=== PATIENT | male | born 1965 | race Caucasian/White ===

== ENCOUNTER → 2017-05-27 | Outpatient (CLI) | payer OTHER | LOC: LAB 15:23 | DX: Z00.00 Encounter for general adult medical examination without abnormal findings (principal); Z12.5 Encounter for screening for malignant neoplasm of prostate; Z12.11 Encounter for screening for malignant neoplasm of colon ==

== ENCOUNTER → 2018-11-24 | Outpatient (CLI) | payer OTHER ==
[2018-11-24 11:11] LABS: EOS # 0.2 (0.04-0.40); HEMATOCRIT 48.9 % (42.0-52.0); HEMOGLOBIN 15.9 g/dL (13.5-18.0); LYMPH# 1.8 (1.50-4.00); MEAN CELL VOLUME 89 fl (78-100); MEAN CORPUSCULAR HEMOGLOBIN 29 pg (27-31); MEAN CORPUSCULAR HGB CONC 33 g/dL (33-37); MEAN PLATELET VOLUME 10.7 fl (7.4-10.4); MONO # 0.8 (0.20-0.80); NEU # 4.5 (1.40-6.50); PLATELET COUNT 242 K/mm3 (130-400); RED CELL DISTRIBUTION WIDTH 13.7 % (11.5-14.5); WHITE BLOOD COUNT 7.3 K/mm3 (4.8-10.8)
[2018-11-24 11:16] LABS: ALBUMIN 4.4 g/dL (3.5-5.0); CALCIUM 9.5 mg/dL (8.4-10.2); POTASSIUM 4.5 mmol/L (3.6-5.0); TOTAL PROTEIN 7.8 g/dL (6.3-8.2)
[2018-11-24 11:17] LABS: URINE APPEARANCE CLEAR; URINE COLOR YELLOW
[2018-11-24 11:18] LABS: URINE BILIRUBIN NEGATIVE (NEGATIVE); URINE BLOOD NEGATIVE (NEGATIVE); URINE GLUCOSE NEGATIVE (NEGATIVE); URINE KETONE NEGATIVE (NEGATIVE); URINE LEUKOCYTE ESTERASE NEGATIVE (NEGATIVE); URINE MUCUS PRESENT (NOT PRESENT); URINE NITRATE NEGATIVE (NEGATIVE); URINE PROTEIN(semi-quant) TRACE mg/dL (NEGATIVE); URINE UROBILINOGEN NORMAL (NORMAL); URINE WBC 0-1 /hpf (0-3)
[2018-11-24 12:24] LABS: ERYTHROCYTE SEDIMENTATION RATE 10 mm/hr (0-20)
[2018-11-25 02:46] LABS: TESTOSTERONE 279 ng/dL (221-716)
== END ==
LOC: LAB 10:13
PROVIDERS: Internal Medicine
DX: Z00.00 Encounter for general adult medical examination without abnormal findings (principal)

== ENCOUNTER → 2019-08-31 | Outpatient (CLI) | payer OTHER ==
[2019-08-31 11:54] LABS: EOS # 0.2 (0.04-0.40); EOS % 2.7 % (0.0-4.0); HEMATOCRIT 46.5 % (42.0-52.0); HEMOGLOBIN 15.3 g/dL (13.5-18.0); MEAN CELL VOLUME 88 fl (78-100); MEAN CORPUSCULAR HEMOGLOBIN 29 pg (27-31); MEAN CORPUSCULAR HGB CONC 33 g/dL (33-37); MEAN PLATELET VOLUME 9.9 fl (7.4-10.4); MONO # 0.8 (0.20-0.80); NEU # 4.3 (1.40-6.50); PLATELET COUNT 235 K/mm3 (130-400); RED BLOOD COUNT 5.31 M/mm3 (4.20-5.60); RED CELL DISTRIBUTION WIDTH 13.7 % (11.5-14.5); WHITE BLOOD COUNT 7.3 K/mm3 (4.8-10.8)
[2019-08-31 12:01] LABS: ALBUMIN 4.2 g/dL (3.5-5.0); POTASSIUM 4.1 mmol/L (3.5-5.1)
[2019-08-31 12:02] LABS: CALCIUM 9.9 mg/dL (8.3-10.5)
[2019-08-31 12:03] LABS: TOTAL PROTEIN 7.9 g/dL (6.4-8.3)
[2019-08-31 12:05] LABS: TOTAL BILIRUBIN 2.3 mg/dL (0.2-1.2)
[2019-08-31 12:27] LABS: URINE APPEARANCE CLEAR; URINE COLOR YELLOW
[2019-08-31 12:28] LABS: URINE BILIRUBIN NEGATIVE (NEGATIVE); URINE BLOOD NEGATIVE (NEGATIVE); URINE GLUCOSE NEGATIVE (NEGATIVE); URINE KETONE NEGATIVE (NEGATIVE); URINE LEUKOCYTE ESTERASE NEGATIVE (NEGATIVE); URINE NITRATE NEGATIVE (NEGATIVE); URINE PROTEIN(semi-quant) NEGATIVE (NEGATIVE); URINE UROBILINOGEN NORMAL (NORMAL); URINE WBC 0-1 /hpf (0-3)
[2019-08-31 12:29] LABS: URINE MUCUS PRESENT (NOT PRESENT)
[2019-08-31 13:21] LABS: ERYTHROCYTE SEDIMENTATION RATE 4 mm/hr (0-20)
== END ==
LOC: LAB 11:36
PROVIDERS: Internal Medicine
DX: Z00.00 Encounter for general adult medical examination without abnormal findings (principal)

== ENCOUNTER → 2020-09-19 | Outpatient (CLI) | payer OTHER ==
[2020-09-19 09:37] LABS: URINE WBC 0 /hpf (0-3)
[2020-09-19 09:57] LABS: EOS # 0.2 (0.04-0.40); EOS % 2.6 % (0.0-4.0); HEMATOCRIT 45.4 % (42.0-52.0); HEMOGLOBIN 14.8 g/dL (13.5-18.0); LYMPH# 1.9 (1.50-4.00); MEAN CELL VOLUME 88 fl (78-100); MEAN CORPUSCULAR HEMOGLOBIN 29 pg (27-31); MEAN CORPUSCULAR HGB CONC 33 g/dL (33-37); MEAN PLATELET VOLUME 10.2 fl (7.4-10.4); MONO # 0.8 (0.20-0.80); NEU # 4.7 (1.40-6.50); PLATELET COUNT 252 K/mm3 (130-400); RED BLOOD COUNT 5.15 M/mm3 (4.20-5.60); RED CELL DISTRIBUTION WIDTH 13.4 % (11.5-14.5); WHITE BLOOD COUNT 7.7 K/mm3 (4.8-10.8)
[2020-09-19 10:11] LABS: ALBUMIN 4.2 g/dL (3.5-5.0); POTASSIUM 4.2 mmol/L (3.5-5.1)
[2020-09-19 10:12] LABS: CALCIUM 9.2 mg/dL (8.3-10.5)
[2020-09-19 10:13] LABS: TOTAL PROTEIN 7.7 g/dL (6.4-8.3)
[2020-09-19 10:15] LABS: TOTAL BILIRUBIN 1.8 mg/dL (0.2-1.2)
[2020-09-19 10:20] LABS: MAGNESIUM 1.79 mg/dL (1.60-2.60)
[2020-09-19 12:01] LABS: ERYTHROCYTE SEDIMENTATION RATE 8 mm/hr (0-20)
[2020-09-19 12:02] LABS: URINE APPEARANCE CLEAR; URINE BILIRUBIN NEGATIVE (NEGATIVE); URINE BLOOD NEGATIVE (NEGATIVE); URINE COLOR YELLOW; URINE KETONE NEGATIVE (NEGATIVE); URINE LEUKOCYTE ESTERASE NEGATIVE (NEGATIVE); URINE NITRATE NEGATIVE (NEGATIVE); URINE PROTEIN(semi-quant) TRACE mg/dL (NEGATIVE); URINE UROBILINOGEN NORMAL (NORMAL)
== END ==
LOC: LAB 09:28
PROVIDERS: Internal Medicine
DX: Z00.00 Encounter for general adult medical examination without abnormal findings (principal)

== ENCOUNTER 2020-12-02 16:27 | Emergency (ER) | payer OTHER ==
[~2020-12-02] VITALS: Ht 177.8 cm; Wt 100.0 kg
[2020-12-02 17:11] LABS: HEMOGLOBIN 15.1 g/dL (13.5-18.0); MEAN CELL VOLUME 86 fl (78-100); MEAN CORPUSCULAR HEMOGLOBIN 28 pg (27-31); MEAN CORPUSCULAR HGB CONC 33 g/dL (33-37); MEAN PLATELET VOLUME 10.6 fl (7.4-10.4); PLATELET COUNT 175 K/mm3 (130-400); RED BLOOD COUNT 5.36 M/mm3 (4.20-5.60); RED CELL DISTRIBUTION WIDTH 13.8 % (11.5-14.5)
[2020-12-02] MEDS ORDERED: NORVASC 10MG10 MG PO (17:12)
[2020-12-02] MEDS ORDERED: COZAAR 50MG50 MG/TAB PO (17:13)
[2020-12-02] MEDS ORDERED: ISOSORBIDE MONO60 M2 PO (17:13)
[2020-12-02] MEDS ORDERED: CLOPIDOGREL PO (17:14)
[2020-12-02] MEDS ORDERED: LIPITOR 80MG80 MG PO (17:14)
[2020-12-02] MEDS ORDERED: LOPRESSOR 550 MG/TAB PO (17:14)
[2020-12-02] MEDS ORDERED: GLUCOPHAGE500 MG/TAB PO (17:15)
[2020-12-02 17:16] LABS: BAND 2 % (0-10); LYMPHOCYTE 18 % (20-51); MONOCYTE 13 % (3-10); NEUTROPHILS 65 % (42-75)
[2020-12-02] MEDS ORDERED: TRULICITY1.5 MG/0.5 SC (17:16)
[2020-12-02] MEDS ORDERED: ST. JOSEPH ASPI81 MG PO (17:16)
[2020-12-02 17:20] LABS: ALBUMIN 3.6 g/dL (3.5-5.0); POTASSIUM 3.8 mmol/L (3.5-5.1)
[2020-12-02 17:22] LABS: CALCIUM 8.8 mg/dL (8.3-10.5)
[2020-12-02 17:23] LABS: TOTAL PROTEIN 7.3 g/dL (6.4-8.3)
[2020-12-02 17:25] LABS: TOTAL BILIRUBIN 1.5 mg/dL (0.2-1.2)
[2020-12-02 17:26] LABS: D-DIMER 0.74 mg/L FEU (0.15-0.50)
[2020-12-02 17:36] LABS: TROPONIN-I 0.03 ng/mL (<0.030)
[2020-12-02 18:59] VITALS: BP 129/74
== END 2020-12-02 19:25 | disposition short-term general hospital (02) ==
LOC: ED 16:27
PROVIDERS: Nurse Practitioner
DX: U07.1 COVID-19 (principal); J12.82 Pneumonia due to coronavirus disease 2019; I25.10 Atherosclerotic heart disease of native coronary artery without angina pectoris; E11.9 Type 2 diabetes mellitus without complications; I10 Essential (primary) hypertension; Z79.02 Long term (current) use of antithrombotics/antiplatelets; Z79.82 Long term (current) use of aspirin; Z79.84 Long term (current) use of oral hypoglycemic drugs
CPT/HCPCS: J0456; J0696; J1100; J7030; J7050; Q9967

== ENCOUNTER → 2020-12-02 | Outpatient (CLI) | payer OTHER ==
[~2020-12-02] MED LIST: CLOPIDOGREL PO; COZAAR 50MG50 MG/TAB PO; GLUCOPHAGE500 MG/TAB PO; ISOSORBIDE MONO60 M2 PO; LIPITOR 80MG80 MG PO; LOPRESSOR 550 MG/TAB PO; NORVASC 10MG10 MG PO; ST. JOSEPH ASPI81 MG PO; TRULICITY1.5 MG/0.5 SC
== END ==
LOC: LAB 12:56
DX: R05 Cough (principal); Z53.8 Procedure and treatment not carried out for other reasons

== ENCOUNTER → 2021-03-20 | Outpatient (CLI) | payer OTHER ==
[2021-03-20 09:25] LABS: BASO # 0.02 (0.02-0.10); EOS # 0.28 (0.04-0.40); EOS % 3.4 % (0.0-4.0); HEMATOCRIT 45.7 % (42.0-52.0); LYMPH# 2.76 (1.50-4.00); MEAN CELL VOLUME 88 fl (78-100); MEAN CORPUSCULAR HEMOGLOBIN 29 pg (27-31); MEAN CORPUSCULAR HGB CONC 33 g/dL (33-37); MEAN PLATELET VOLUME 10.2 fl (7.4-10.4); MONO # 0.73 (0.20-0.80); NEU # 4.45 (1.40-6.50); PLATELET COUNT 263 K/mm3 (130-400); RED BLOOD COUNT 5.17 M/mm3 (4.20-5.60); RED CELL DISTRIBUTION WIDTH 13.7 % (11.5-14.5); WHITE BLOOD COUNT 8.3 K/mm3 (4.8-10.8)
[2021-03-20 09:41] LABS: ALBUMIN 4.2 g/dL (3.5-5.0); POTASSIUM 4.3 mmol/L (3.5-5.1)
[2021-03-20 09:42] LABS: CALCIUM 9.7 mg/dL (8.3-10.5)
[2021-03-20 09:44] LABS: TOTAL PROTEIN 7.2 g/dL (6.4-8.3)
[2021-03-20 09:46] LABS: TOTAL BILIRUBIN 2.1 mg/dL (0.2-1.2)
== END ==
LOC: LAB 08:35
PROVIDERS: Internal Medicine
DX: E11.9 Type 2 diabetes mellitus without complications (principal); I25.10 Atherosclerotic heart disease of native coronary artery without angina pectoris

== ENCOUNTER → 2021-07-09 | Outpatient (CLI) | payer OTHER ==
[2021-07-09 15:13] LABS: BASO # 0.02 (0.02-0.10); EOS # 0.17 (0.04-0.40); EOS % 1.8 % (0.0-4.0); LYMPH# 1.74 (1.50-4.00); MEAN CELL VOLUME 87 fl (78-100); MEAN CORPUSCULAR HEMOGLOBIN 28 pg (27-31); MEAN CORPUSCULAR HGB CONC 32 g/dL (33-37); MEAN PLATELET VOLUME 9.4 fl (7.4-10.4); MONO # 0.98 (0.20-0.80); NEU # 6.73 (1.40-6.50); PLATELET COUNT 427 K/mm3 (130-400); RED BLOOD COUNT 4.71 M/mm3 (4.20-5.60); RED CELL DISTRIBUTION WIDTH 12.7 % (11.5-14.5); WHITE BLOOD COUNT 9.7 K/mm3 (4.8-10.8)
[2021-07-09 15:14] LABS: ALBUMIN 3.7 g/dL (3.5-5.0); POTASSIUM 4.1 mmol/L (3.5-5.1)
[2021-07-09 15:16] LABS: CALCIUM 10.5 mg/dL (8.3-10.5)
[2021-07-09 15:17] LABS: TOTAL PROTEIN 7.8 g/dL (6.4-8.3)
[2021-07-09 15:19] LABS: TOTAL BILIRUBIN 1.4 mg/dL (0.2-1.2)
[2021-07-09 16:18] LABS: ERYTHROCYTE SEDIMENTATION RATE 103 mm/hr (0-20)
== END ==
LOC: LAB 14:54
PROVIDERS: Physician Assistant
DX: Z13.29 Encounter for screening for other suspected endocrine disorder (principal); R59.0 Localized enlarged lymph nodes; K90.9 Intestinal malabsorption, unspecified; E11.9 Type 2 diabetes mellitus without complications

== ENCOUNTER → 2021-07-24 | Outpatient (CLI) | payer OTHER ==
[2021-07-24 23:18] LABS: T3 FREE 2.2 pg/mL (1.7-3.7)
[2021-07-29 14:19] LABS: LIVER-KIDNEY MICROSOME AUTOAB <5.0 U (())
== END ==
LOC: LAB 08:38
PROVIDERS: Internal Medicine
DX: E06.1 Subacute thyroiditis (principal)

== ENCOUNTER → 2021-08-28 | Outpatient (CLI) | payer OTHER ==
[2021-08-28 09:57] LABS: BASO # 0.02 K/mm3 (0.02-0.10); EOS # 0.15 K/mm3 (0.04-0.40); HEMATOCRIT 47.1 % (42.0-52.0); LYMPH# 1.99 K/mm3 (1.50-4.00); MEAN CELL VOLUME 87 fl (78-100); MEAN CORPUSCULAR HEMOGLOBIN 28 pg (27-31); MEAN CORPUSCULAR HGB CONC 32 g/dL (33-37); MEAN PLATELET VOLUME 9.9 fl (7.4-10.4); MONO # 0.61 K/mm3 (0.20-0.80); NEU # 4.57 K/mm3 (1.40-6.50); PLATELET COUNT 284 K/mm3 (130-400); RED BLOOD COUNT 5.43 M/mm3 (4.20-5.60); RED CELL DISTRIBUTION WIDTH 15.6 % (11.5-14.5); WHITE BLOOD COUNT 7.4 K/mm3 (4.8-10.8)
[2021-08-28 10:49] LABS: ALBUMIN 4.3 g/dL (3.5-5.0); POTASSIUM 4.1 mmol/L (3.5-5.1)
[2021-08-28 10:50] LABS: CALCIUM 10.3 mg/dL (8.3-10.5)
[2021-08-28 10:52] LABS: TOTAL PROTEIN 7.7 g/dL (6.4-8.3)
[2021-08-28 10:53] LABS: TOTAL BILIRUBIN 1.7 mg/dL (0.2-1.2)
[2021-08-28 10:58] LABS: MAGNESIUM 1.96 mg/dL (1.60-2.60)
[2021-08-28 11:43] LABS: URINE COLOR YELLOW
[2021-08-28 11:44] LABS: URINE APPEARANCE CLEAR; URINE BILIRUBIN NEGATIVE (NEGATIVE); URINE BLOOD NEGATIVE (NEGATIVE); URINE GLUCOSE NEGATIVE (NEGATIVE); URINE KETONE NEGATIVE (NEGATIVE); URINE LEUKOCYTE ESTERASE NEGATIVE (NEGATIVE); URINE NITRATE NEGATIVE (NEGATIVE); URINE PROTEIN(semi-quant) TRACE mg/dL (NEGATIVE); URINE UROBILINOGEN NORMAL (NORMAL); URINE WBC 0-1 /hpf (0-3)
[2021-08-28 12:06] LABS: ERYTHROCYTE SEDIMENTATION RATE 8 mm/hr (0-20)
[2021-08-28 23:44] LABS: T3 FREE 2.4 pg/mL (1.7-3.7)
== END ==
LOC: LAB 09:19
PROVIDERS: Internal Medicine
DX: Z00.00 Encounter for general adult medical examination without abnormal findings (principal); Z12.5 Encounter for screening for malignant neoplasm of prostate; Z12.11 Encounter for screening for malignant neoplasm of colon

== ENCOUNTER → 2021-09-21 | Outpatient (CLI) | payer OTHER | LOC: LAB 07:50 | DX: E06.1 Subacute thyroiditis (principal) ==

== ENCOUNTER → 2021-11-09 | Outpatient (CLI) | payer OTHER | LOC: LAB 07:58 | DX: E06.1 Subacute thyroiditis (principal); E03.9 Hypothyroidism, unspecified ==

== ENCOUNTER → 2022-09-02 | Outpatient (CLI) | payer OTHER ==
[2022-09-02 09:37] LABS: URINE WBC 0 /hpf (0-3)
[2022-09-02 09:56] LABS: BASO # 0.01 K/mm3 (0.02-0.10); EOS # 0.54 K/mm3 (0.04-0.40); EOS % 7.8 % (0.0-4.0); HEMATOCRIT 48.9 % (42.0-52.0); HEMOGLOBIN 15.8 g/dL (13.5-18.0); LYMPH# 2.05 K/mm3 (1.50-4.00); MEAN CELL VOLUME 88 fl (78-100); MEAN CORPUSCULAR HEMOGLOBIN 29 pg (27-31); MEAN CORPUSCULAR HGB CONC 32 g/dL (33-37); MEAN PLATELET VOLUME 9.8 fl (7.4-10.4); MONO # 0.63 K/mm3 (0.20-0.80); NEU # 3.63 K/mm3 (1.40-6.50); PLATELET COUNT 248 K/mm3 (130-400); RED BLOOD COUNT 5.54 M/mm3 (4.20-5.60); WHITE BLOOD COUNT 6.9 K/mm3 (4.8-10.8)
[2022-09-02 09:58] LABS: ALBUMIN 4.5 g/dL (3.5-5.0); POTASSIUM 3.9 mmol/L (3.5-5.1)
[2022-09-02 10:00] LABS: TOTAL PROTEIN 8.2 g/dL (6.4-8.3)
[2022-09-02 10:02] LABS: TOTAL BILIRUBIN 1.7 mg/dL (0.2-1.2)
[2022-09-02 10:29] LABS: URINE APPEARANCE CLEAR; URINE BILIRUBIN NEGATIVE (NEGATIVE); URINE BLOOD NEGATIVE (NEGATIVE); URINE COLOR YELLOW; URINE GLUCOSE NEGATIVE (NEGATIVE); URINE KETONE NEGATIVE (NEGATIVE); URINE LEUKOCYTE ESTERASE NEGATIVE (NEGATIVE); URINE NITRATE NEGATIVE (NEGATIVE); URINE PROTEIN(semi-quant) NEGATIVE (NEGATIVE); URINE UROBILINOGEN NORMAL (NORMAL)
[2022-09-02 21:56] LABS: T3 FREE 2.4 pg/mL (1.7-3.7)
== END ==
LOC: LAB 09:22
PROVIDERS: Internal Medicine
DX: Z00.00 Encounter for general adult medical examination without abnormal findings (principal); Z12.5 Encounter for screening for malignant neoplasm of prostate; Z12.11 Encounter for screening for malignant neoplasm of colon; I25.10 Atherosclerotic heart disease of native coronary artery without angina pectoris; E06.1 Subacute thyroiditis; J20.9 Acute bronchitis, unspecified; K90.9 Intestinal malabsorption, unspecified; E29.1 Testicular hypofunction; E55.9 Vitamin D deficiency, unspecified; E11.9 Type 2 diabetes mellitus without complications

== ENCOUNTER → 2024-07-16 | Outpatient (CLI) | payer OTHER ==
[2024-07-16 10:52] LABS: BASO # 0.01 K/mm3 (0.02-0.10); EOS % 2.8 % (0.0-4.0); HEMATOCRIT 47.1 % (42.0-52.0); HEMOGLOBIN 15.4 g/dL (13.5-18.0); LYMPH# 1.58 K/mm3 (1.50-4.00); MEAN CELL VOLUME 89 fl (78-100); MEAN CORPUSCULAR HEMOGLOBIN 29 pg (27-31); MEAN CORPUSCULAR HGB CONC 33 g/dL (33-37); MEAN PLATELET VOLUME 9.6 fl (7.4-10.4); MONO # 0.66 K/mm3 (0.20-0.80); NEU # 4.71 K/mm3 (1.40-6.50); PLATELET COUNT 265 K/mm3 (130-400); RED BLOOD COUNT 5.29 M/mm3 (4.20-5.60); RED CELL DISTRIBUTION WIDTH 13.6 % (11.5-14.5); WHITE BLOOD COUNT 7.2 K/mm3 (4.8-10.8)
[2024-07-16 11:04] LABS: ALBUMIN 4.2 g/dL (3.5-5.0)
[2024-07-16 11:05] LABS: CALCIUM 10.4 mg/dL (8.3-10.5)
[2024-07-16 11:07] LABS: TOTAL PROTEIN 7.5 g/dL (6.4-8.3)
[2024-07-16 11:08] LABS: TOTAL BILIRUBIN 2.1 mg/dL (0.2-1.2)
[2024-07-16 11:14] LABS: MAGNESIUM 1.82 mg/dL (1.60-2.60)
[2024-07-16 11:16] LABS: URINE APPEARANCE CLEAR (CLEAR); URINE COLOR YELLOW (YELLOW)
[2024-07-16 11:17] LABS: PH-URINE 5.5 (5.0 - 8.0); URINE BILIRUBIN NEGATIVE (NEGATIVE); URINE BLOOD NEGATIVE (NEGATIVE); URINE GLUCOSE NEGATIVE (NEGATIVE); URINE KETONE NEGATIVE (NEGATIVE); URINE LEUKOCYTE ESTERASE NEGATIVE (NEGATIVE); URINE MUCUS PRESENT (NOT PRESENT); URINE NITRATE NEGATIVE (NEGATIVE); URINE PROTEIN(semi-quant) NEGATIVE (NEGATIVE)
[2024-07-16 23:16] LABS: LUTENIZING HORMONE 2.1 mIU/mL (0.6-12.1); PROLACTIN AMS 7.4 ng/mL (3.5-19.4)
== END ==
LOC: LAB 10:36
PROVIDERS: Internal Medicine
DX: Z12.5 Encounter for screening for malignant neoplasm of prostate (principal); Z12.11 Encounter for screening for malignant neoplasm of colon; Z00.00 Encounter for general adult medical examination without abnormal findings